=== PATIENT | male | born 1980 | race Caucasian/White ===

== ENCOUNTER 2024-04-15 14:59 | Emergency (ER) | payer OTHER ==
[~2024-04-15] VITALS: Ht 177.8 cm; Wt 110.9 kg
[2024-04-15] MEDS ORDERED: DIPHTH,PERTUSS(ACELL),TET VAC 0.5 ML SYRINGE IM ONE (16:30)
[2024-04-15 18:21] VITALS: BP 131/94
== END 2024-04-15 18:23 | disposition home or self-care (01) ==
LOC: ED 14:59
DX: S61.313A Laceration without foreign body of left middle finger with damage to nail, initial encounter (principal); W26.0XXA Contact with knife, initial encounter
CPT/HCPCS: 73140; 90715

== ENCOUNTER 2024-11-19 14:57 | Emergency (ER) | payer OTHER, BC ==
[~2024-11-19] VITALS: Ht 177.8 cm; Wt 111.6 kg
[2024-11-19] MEDS ORDERED: ondansetron HCL 4 MG/2 ML VIAL IV ONE ×2 (18:15→19:15)
[2024-11-19 18:18] LABS: BILIRUBIN, URINE NEGATIVE (negative); BLOOD/HGB, URINE NEGATIVE (Negative); KETONE, URINE NEGATIVE (Negative); LEUK ESTERASE, URINE NEGATIVE (negative); NITRITE, URINE NEGATIVE (negative)
[2024-11-19 18:44] LABS: BASOPHILS 0.3 % (0-2); EOSINOPHILS 1.7 % (0-6); HEMATOCRIT 44.8 % (35.0-50.0); HEMOGLOBIN 15.7 g/dL (12.0-18.0); LYMPHOCYTES 14.5 % (24-44); MCH 30.7 (27-36); MCV 87.7 fl (81-99); MONOCYTES 8.4 % (0-12); NEUTROPHILS 75.1 % (39-80); PLATELET COUNT 245 K/uL (140-440); RBC 5.11 M/ul (4.3-5.7); RDW 13.5 (10.5-15.0)
[2024-11-19 18:59] LABS: ALBUMIN 4.2 g/dL (3.4-5.0); ALBUMIN/GLOBULIN RATIO 1.27 (1.1-2.4); ANION GAP 11.9 (7-21); BILIRUBIN, TOTAL 0.5 ng/dL (0.2-1.0); BUN/CREATININE RATIO 14.95 (6.0-28.6); CALCIUM 9.4 mg/dL (8.5-10.1); CREATININE, SERUM 1.07 mg/dL (0.70-1.30); POTASSIUM 3.9 mmol/L (3.5-5.1); PROTEIN, TOTAL 7.5 g/dL (6.4-8.2)
[2024-11-19] MEDS ORDERED: MORPHINE SULFATE 4 MG/ML VIAL IV ONE ×2 (19:15→22:00)
[2024-11-19] MEDS ORDERED: LACTATED RINGER'S 1,000 ML IV ONE (19:15)
[2024-11-19] MEDS ORDERED: ANASPAZ0.125 MG PO (22:02)
[2024-11-19] MEDS ORDERED: ONDANSETRON ODT8 MG PO (22:02)
[2024-11-19 22:05] VITALS: BP 118/83
[2024-11-19] MEDS ORDERED: ONDANSETRON 4 MG HOME.PACK SL ONE (22:15)
== END 2024-11-19 22:16 | disposition home or self-care (01) ==
LOC: ED 14:57
PROVIDERS: Emergency Medicine
DX: K52.9 Noninfective gastroenteritis and colitis, unspecified (principal)
CPT/HCPCS: 36415; 74177; 80053; 81003; 83690; 85025; 96361; 96375; 96376; 99284-25; A9270; J2270; J2405; J7121; Q9967